=== PATIENT | male | born 1960 ===

== ENCOUNTER 2024-06-15 07:15 | Inpatient (IN) | payer OTHER ==
[~2024-06-15] VITALS: Ht 188 cm; Wt 74.8 kg
[2024-06-15 09:40] VITALS: BP 149/87
[2024-06-15 09:51] LABS: HEMATOCRIT 46.8 % (39.0-48.0); HEMOGLOBIN 16.3 g/dL (13-16.00); MEAN CELL VOLUME 99.4 fL (80.0-100.00); MEAN CORPUSCULAR HEMOGLOBIN 34.7 pg (27.00-32.0); MEAN CORPUSCULAR HGB CONC 34.9 g/dl (32.0-36.0); PLATELET COUNT 231 K/uL (150-450); RED BLOOD COUNT 4.71 M/uL (4.00-6.00); RED CELL DISTRIBUTION WIDTH 13.8 % (11.5-14.5)
[2024-06-15 10:07] LABS: INR < 0.93; PARTIAL THROMBOPLASTIN TIME 28.4 SECONDS (22.0-34.0); PROTHROMBIN TIME 10.2 SECONDS (9.0-11.5)
[2024-06-15 10:22] LABS: PH,URINE 5.5 (5.0-8.0); URINE APPEARANCE Clear; URINE BILIRRUBIN Negative (NEGATIVE); URINE BLOOD Negative; URINE COLOR Yellow; URINE GLUCOSE Negative (NEGATIVE); URINE KETONE Negative (NEGATIVE); URINE LEUKOCYTE Negative; URINE NITRATE Negative; URINE PROTEIN Trace (NEGATIVE)
[2024-06-15 10:26] LABS: URINE BACTERIA 17.1 uL (0.0-1933); URINE EPITHELIAL CELLS 2.2 uL (0.0-38.8); URINE RBC 12.8 uL (0.0-20.8); URINE WBC 21.8 uL (0.0-23.2)
[2024-06-15 10:28] LABS: URINE CAST 0.44 uL (0.0-1.40)
[2024-06-15 10:31] LABS: ALBUMIN 3.6 gm/dL (3.4-5.0); BILIRUBIN TOTAL 0.79 mg/dL (0.3-1.2); CALCIUM 10.2 mg/dL (8.5-10.1); CREATININE SERUM 0.91 mg/dL (0.70-1.30); GFR 83.88; GLOBULINA 3.5 G/DL (2.4-3.5); POTASSIUM 4.43 mEq/L (3.5-5.1); TOTAL PROTEIN 7.1 gm/dL (6.4-8.2)
[2024-06-18] MEDS ORDERED: CEFAZOLIN SODIUM 1,000 MG VIAL ONE (10:51)
[2024-06-18] MEDS ORDERED: DEXAMETHASONE SODIUM PHOSPHATE 4 MG/ML VIAL ONE (13:34)
[2024-06-18] MEDS ORDERED: ONDANSETRON HCL 2 MG/ML VIAL IV PRN (18:00)
[2024-06-18] MEDS ORDERED: ENALAPRILAT DIHYDRATE 1.25 MG/ML VIAL IV PRN (18:00)
[2024-06-18] MEDS ORDERED: PANTOPRAZOLE SODIUM 40 MG/VIAL VIAL ONE (20:45)
[2024-06-18] MEDS ORDERED: PANTOPRAZOLE SODIUM 40 MG/VIAL VIAL IV PUSH SCH (21:00)
[2024-06-18 21:50] VITALS: BP 155/72; O2SAT 99
[2024-06-19] MEDS ORDERED: TRAMADOL HCL 50 MG TABLET PO SCH (01:00)
[2024-06-19] MEDS ORDERED: ACETAMINOPHEN 500 MG GEL..CAP PO SCH (01:00)
[2024-06-19 01:03] VITALS: BP 150/81; BP 169/74; O2SAT 98
[2024-06-19 08:00] VITALS: BP 157/77; O2SAT 96
[2024-06-19] MEDS ORDERED: CYCLOBENZAPRINE HCL 5 MG TABLET PO SCH (17:00)
== END 2024-06-19 14:51 | disposition home or self-care (01) | DRG 627 ==
LOC: SURH 06-18 07:00 → O/R 06-18 07:03 → SURH 06-18 07:15
PROVIDERS: ADMIT Surgery; ATTEND Surgery
PROC: 0GBP0ZZ Excision of Left Inferior Parathyroid Gland, Open Approach (ICD-10-PCS; principal; 2024-06-18 07:00)
DX: D35.1 Benign neoplasm of parathyroid gland (principal)

== ENCOUNTER 2024-10-17 00:11 | Day surgery (SDC) | payer OTHER ==
[2024-09-24 08:04] VITALS: BP 136/82
[2024-09-24 08:12] LABS: BASO % 0.7 % (0.1-1.2); EOS # 0.13 (0.04-0.54); EOS % 1.9 % (0.7-7.0); LYMPH # 2.52 (1.18-3.74); LYMPH % 36.6 % (19.3-53.1); MEAN PLATELET VOLUME 10.00 fl (9.4-12.4); MONO # 0.54 (0.24-0.82); MONO % 7.8 % (4.7-12.5); NEUT # 3.63 (1.56-6.13); NEUT % 52.7 % (34.0-71.1); RED CELL DISTRIBUTION WIDTH 13.4 % (11.6-14.4)
[2024-09-24 08:23] LABS: URINE APPEARANCE Clear; URINE BILIRRUBIN Negative (NEGATIVE); URINE BLOOD Negative; URINE COLOR Yellow; URINE GLUCOSE Negative (NEGATIVE); URINE KETONE Trace (NEGATIVE); URINE LEUKOCYTE Trace; URINE NITRATE Negative; URINE PROTEIN Negative (NEGATIVE); URINE UROBILINOGEN 0.2 E.U./dl
[2024-09-24 08:27] LABS: URINE BACTERIA 14.3 uL (0.0-1933); URINE EPITHELIAL CELLS 2.9 uL (0.0-38.8); URINE RBC 17.1 uL (0.0-20.8); URINE WBC 21.6 uL (0.0-23.2)
[2024-09-24 08:29] LABS: INR 0.96
[2024-09-24 08:44] LABS: URINE CAST 0.00 uL (0.0-1.40)
[2024-09-24 08:59] LABS: ALT/SGPT 22.0 U/L (12-78); AST/SGOT 11.0 U/L (15-37); BILIRUBIN TOTAL 0.42 mg/dL (0.3-1.2); BUN CREA RATIO 18.0 (7.0-25.0); CREATININE SERUM 0.96 mg/dL (0.70-1.30); GFR 78.86; GLOBULINA 3.2 G/DL (2.4-3.5); GLUCOSE FASTING 94.0 mg/dL (65-100); OSMOLALITY SERUM 286.0 MOSM/KG (275-295)
[~2024-10-17] VITALS: Ht 188 cm; Wt 74.8 kg
[~2024-10-17 00:11] MED LIST: COMBIGAN EYE DRO5 ML OP; DEXAMETHASONE 4 MG TABLET PO SCH; ENALAPRILAT DIHYDRATE 1.25 MG/ML VIAL IV PRN; LUMIGAN2.5 M1 OP; ONDANSETRON HCL 2 MG/ML VIAL IV PRN
[2024-10-17] MEDS ORDERED: TRAMADOL HCL 50 MG TABLET PO SCH (01:00)
[2024-10-17] MEDS ORDERED: ACETAMINOPHEN 500 MG GEL..CAP PO SCH (01:00)
[2024-10-17] MEDS ORDERED: DIPHENHYDRAMINE HCL 30 MG,LIDOCAINE HCL 30 ML,MAG HYDROX/ALUMINUM HYD/SIMETH 30 ML PO SCH (01:00)
[2024-10-17] MEDS ORDERED: CYCLOBENZAPRINE HCL 5 MG TABLET PO SCH (17:00)
[2024-10-17] MEDS ORDERED: PANTOPRAZOLE SODIUM 40 MG/VIAL VIAL IV PUSH SCH (21:00)
== END 2024-10-17 10:37 | disposition home or self-care (01) ==
LOC: SURH 00:11 → U 00:11 → CIR.AMB 00:11 → MEDI 00:11 → SURG 00:15 → CIR.AMB 10:37 → SURG 10:37
PROVIDERS: ATTEND Surgery
DX: E21.0 Primary hyperparathyroidism (principal); D34 Benign neoplasm of thyroid gland